=== PATIENT | male | born 1960 | race African-American/Black ===

== ENCOUNTER 2017-05-19 09:07 | Emergency (ER) | payer MEDICAID ==
[~2017-05-19] VITALS: Ht 172.7 cm; Wt 96.0 kg
[~2017-05-19 09:07] MED LIST: AMLODIPINE; ASA; GABAPENTIN; SIMVASTATIN; [UNRECOGNIZED DRUG - OTHER]
[2017-05-19 10:48] LABS: BASOPHILS % 0.7 % (0.0-2.0); EOSINOPHILS % 1.1 % (0.0-5.0); HEMATOCRIT. 39.9 % (42.0-52.0); HEMOGLOBIN. 13.6 g/dL (14.0-18.0); LYMPHOCYTES % 24.5 % (20.0-50.0); MEAN CORPUSCULAR HEMOGLOBIN 32.3 pg (28.0-32.0); MEAN CORPUSCULAR VOLUME 94.5 fL (80.0-94.0); MEAN PLATELET VOLUME 7.5 fl (7.4-10.4); MONOCYTES % 13.7 % (2.0-8.0); PLATELET 238 x1000/uL (130-400); RED BLOOD CELL COUNT 4.23 mill/uL (4.7-6.1); RED CELL DISTRIBUTION WIDTH 13.7 % (11.6-14.6)
[2017-05-19 10:51] LABS: CLARITY URINE CLEAR (CLEAR); COLOR URINE YELLOW (YELLOW); GLUCOSE URINE NEGATIVE (NEGATIVE); KETONES URINE NEGATIVE (NEGATIVE); LEUKOCYTE ESTERASE URINE NEGATIVE (NEGATIVE); NITRITE URINE NEGATIVE (NEGATIVE); OCCULT BLOOD URINE NEGATIVE (NEGATIVE); PROTEIN URINE NEGATIVE (NEGATIVE); SPECIFIC GRAVITY URINE 1.012 (1.005-1.030); UROBILINOGEN URINE 0.2 E.U./dL (0.2-1.0)
[2017-05-19 10:53] LABS: HCG SCREEN NEGATIVE; PROTHROMBIN TIME 10.3 sec (9.4-11.6)
[2017-05-19] MEDS ORDERED: PROCHLORPERAZINE 10MG/2ML VIAL IV STA (10:56)
[2017-05-19 11:00] LABS: CARBON DIOXIDE 28 mEq/L (21-32); CHLORIDE 100 mEq/L (98-107)
[2017-05-19] MEDS ORDERED: SUMATRIPTAN SUCCINATE 6MG/0.5ML VIAL SUBCUT ONE (11:00)
[2017-05-19 12:45] VITALS: BP 114/65
[2017-05-19] MEDS ORDERED: MAGNESIUM/ALUMINUM HYDROXIDE/SIMETHICONE 30ML UDC PO PRN (13:45)
[2017-05-19] MEDS ORDERED: ACETAMINOPHEN 325MG TABLET PO PRN (13:45)
[2017-05-19] MEDS ORDERED: ONDANSETRON HCL 4MG/2ML VIAL IV PRN (13:45)
[2017-05-19] MEDS ORDERED: IPRATROPIUM/ALBUTEROL 0.5-3(2.5)MG/3ML NEB INH PRN (13:45)
[2017-05-19] MEDS ORDERED: CLONIDINE 0.1MG TABLET PO PRN (13:45)
[2017-05-19 15:26] LABS: *AMPHETAMINES SCREEN URINE NEGATIVE (NEGATIVE); *BARBITURATES SCREEN URINE NEGATIVE (NEGATIVE); *BENZODIAZEPINES SCREEN URINE NEGATIVE (NEGATIVE); *COCAINE SCREEN URINE NEGATIVE (NEGATIVE); CANNABINOID URINE SCREEN NEGATIVE (NEGATIVE); METHADONE URINE SCREEN NEGATIVE (NEGATIVE); OPIATES URINE SCREEN NEGATIVE (NEGATIVE); PHENCYCLIDINE URINE SCREEN NEGATIVE (NEGATIVE)
[2017-05-20] MEDS ORDERED: ENOXAPARIN 40MG/0.4ML SYR SUBCUT SCH (09:00)
[2017-05-20] MEDS ORDERED: ASPIRIN 81MG EC TABLET PO SCH (09:00)
== END 2017-05-19 13:36 | disposition home or self-care (01) ==
LOC: ER 10:46 → EDBEDREQ 11:46 → ENRESERV 12:13 → CANRESERV 12:16 → CANBEDREQ 12:42 → ER 13:36
DX: R51 Headache (principal); H53.141 Visual discomfort, right eye; R42 Dizziness and giddiness; H53.2 Diplopia; E11.9 Type 2 diabetes mellitus without complications; I10 Essential (primary) hypertension; E78.00 Pure hypercholesterolemia, unspecified; M19.90 Unspecified osteoarthritis, unspecified site; F17.200 Nicotine dependence, unspecified, uncomplicated
CPT/HCPCS: 36415; 70450; 80053; 80305; 81003; 82962; 84703; 85025; 85610; 96372; 96374; 99285; J0780; J3030; Z7610

== ENCOUNTER 2019-12-02 07:42 | Emergency (ER) | payer MEDICAID, OTHER ==
[~2019-12-02] VITALS: Ht 172.7 cm; Wt 80.0 kg
[2019-12-02] MEDS ORDERED: ASPIRIN 325MG EC TABLET PO ONE (09:00)
[2019-12-02] MEDS ORDERED: NITROGLYCERIN OINT 1GM/INCH UDPKT TD ONE (09:00)
[2019-12-02 09:05] LABS: BASOPHILS % 0.8 % (0.0-2.0); EOSINOPHILS % 3.2 % (0.0-5.0); HEMOGLOBIN. 12.5 g/dL (14.0-18.0); LYMPHOCYTES % 34.7 % (20.0-50.0); MEAN CORPUSCULAR HEMOGLOBIN 33.9 pg (28.0-32.0); MEAN CORPUSCULAR VOLUME 97.9 fL (80.0-94.0); MONOCYTES % 14.3 % (2.0-8.0); PLATELET 237 x1000/uL (130-400); RED BLOOD CELL COUNT 3.68 mill/uL (4.7-6.1); RED CELL DISTRIBUTION WIDTH 13.4 % (11.6-14.6)
[2019-12-02 09:12] LABS: CHLORIDE 105 mEq/L (98-107)
[2019-12-02 09:14] LABS: D-DIMER 0.43 mg/L FEU (<0.50); INR 0.9; PROTHROMBIN TIME 10.3 sec (9.6-11.0)
[2019-12-02 10:43] LABS: *AMPHETAMINES SCREEN URINE NEGATIVE (NEGATIVE); *BARBITURATES SCREEN URINE NEGATIVE (NEGATIVE)
[2019-12-02 10:44] LABS: *BENZODIAZEPINES SCREEN URINE NEGATIVE (NEGATIVE); *COCAINE SCREEN URINE PRESUMTIVE POSITIVE (NEGATIVE); OPIATES URINE SCREEN NEGATIVE (NEGATIVE)
[2019-12-02 10:45] LABS: CANNABINOID URINE SCREEN NEGATIVE (NEGATIVE); PHENCYCLIDINE URINE SCREEN NEGATIVE (NEGATIVE)
[2019-12-02 12:55] VITALS: BP 112/66
[2019-12-03 15:49] LABS: METHADONE URINE SCREEN NEGATIVE (NEGATIVE)
== END 2019-12-02 14:37 | disposition left against medical advice (07) ==
LOC: ER 07:42 → EDBEDREQ 11:08 → EDBEDREQTM 11:08 → ER 14:37 → CANRESERV 16:45 → ENRESERV 16:45 → CANBEDREQ 17:05
DX: R07.89 Other chest pain (principal); F14.10 Cocaine abuse, uncomplicated; E78.00 Pure hypercholesterolemia, unspecified; E11.9 Type 2 diabetes mellitus without complications; I10 Essential (primary) hypertension; F17.200 Nicotine dependence, unspecified, uncomplicated; Z79.899 Other long term (current) drug therapy
CPT/HCPCS: 36415; 71045; 80053; 80305; 83880; 84484; 85025; 85379; 93005; 99285

== ENCOUNTER 2022-01-25 10:13 | Emergency (ER) | payer MEDICAID ==
[~2022-01-25] VITALS: Ht 172.7 cm; Wt 88.0 kg
[2022-01-25] MEDS ORDERED: SODIUM CHLORIDE 0.9% 1,000 ML IV ONE (11:00)
[2022-01-25 11:07] LABS: BASOPHILS % 0.7 % (0.0-2.0); EOSINOPHILS % 2.2 % (0.0-5.0); HEMATOCRIT. 36.8 % (42.0-52.0); HEMOGLOBIN. 12.5 g/dL (14.0-18.0); LYMPHOCYTES % 33.3 % (20.0-50.0); MEAN CORPUSCULAR HEMOGLOBIN 32.6 pg (28.0-32.0); MEAN CORPUSCULAR VOLUME 95.7 fL (80.0-94.0); MEAN PLATELET VOLUME 6.9 fl (7.4-10.4); MONOCYTES % 12.1 % (2.0-8.0); NEUTROPHILS % 51.7 % (40.0-76.0); PLATELET 225 x1000/uL (130-400); RED BLOOD CELL COUNT 3.85 mill/uL (4.7-6.1); RED CELL DISTRIBUTION WIDTH 14.5 % (11.6-14.6)
[2022-01-25 11:13] LABS: CHLORIDE 108 mEq/L (98-107)
[2022-01-25 11:16] LABS: PROTHROMBIN TIME 10.7 sec (9.6-11.0)
[2022-01-25] MEDS ORDERED: IOHEXOL-300 100 ML BOTTLE ONE (12:24)
[2022-01-25 14:58] VITALS: BP 140/78
== END 2022-01-25 14:59 | disposition left against medical advice (07) ==
LOC: ER 10:21 → EDBEDREQ 13:19 → EDBEDREQTM 13:19 → CANBEDREQ 14:54 → ER 14:59
DX: K62.5 Hemorrhage of anus and rectum (principal); K52.9 Noninfective gastroenteritis and colitis, unspecified; E11.9 Type 2 diabetes mellitus without complications; E78.00 Pure hypercholesterolemia, unspecified; I10 Essential (primary) hypertension; M54.30 Sciatica, unspecified side; M19.90 Unspecified osteoarthritis, unspecified site; F17.210 Nicotine dependence, cigarettes, uncomplicated; Z98.890 Other specified postprocedural states
CPT/HCPCS: 36415; 74177; 80053; 82270; 83690; 85025; 85610; 86850; 86900; 86901; 93005; 96360; 99285; J7030; Q9967

== ENCOUNTER 2024-10-03 09:47 | Emergency (ER) | payer MEDICAID ==
[~2024-10-03] VITALS: Ht 172.7 cm; Wt 82.0 kg
[2024-10-03 09:57] VITALS: BP 128/83; PULSE 85; RESP 18; TEMP 97.8; O2SAT 100
== END 2024-10-03 17:18 | disposition home or self-care (01) ==
LOC: ER 09:47
DX: J06.9 Acute upper respiratory infection, unspecified (principal); I10 Essential (primary) hypertension; E11.9 Type 2 diabetes mellitus without complications; E78.00 Pure hypercholesterolemia, unspecified; Z20.822 Contact with and (suspected) exposure to COVID-19; Z79.899 Other long term (current) drug therapy
CPT/HCPCS: 71045; 87426; 99284